=== PATIENT | female | born 2000 | race Caucasian/White ===

== ENCOUNTER 2021-09-25 06:07 | Day surgery (SDC) | payer BC, SELFPAY ==
[2021-09-25] VITALS (13 sets, daily range): BP systolic 106–127; BP diastolic 59–73; PULSE 64–85; RESP 14–20; TEMP 36.5–36.7; O2SAT 93–98; BMI 36.6
[2021-09-25] MEDS: LACTATED RINGERS 1000 ML 1,000 ML 35 ML IV (06:30)
[2021-09-25] MEDS: CEFAZOLIN 2 GM INJ IVP (07:44)
[2021-09-25 07:45] LABS: Ur HCG Qualitative* Negative (Negative)
[2021-09-25] MEDS: BUPIVACAINE 0.25% 30 ML 15 ML INJECTION (08:37)
--- NOTE | 2021-09-25 08:56 | P.GSOP_ITS ---
Operative Note Date of procedure: 09/25/21 Type of Procedure: 1. Laparoscopic cholecystectomy. Procedure Description: After discussing the risks and benefits of the procedure, the patient signed informed consent.? The operative site was marked and the patient was brought to the operating room and placed on the operating table in supine position.? Care was taken to pad the patient's pressure points.?? The patient was then intubated by anesthesia.?? The operative site was then prepped and draped in the usual sterile fashion.? A time-out was then performed. A 5-mm laparoscopy port was placed in the left upper quadrant guided by a 5-mm laparoscope placed into a translucent trochar.~ Passage through the layers of the abdominal wall was visualized with the laparoscope.~ A pneumoperitoneum was established. A 0-degree 5-mm laparoscope was advanced into the abdomen. The abdomen was briefly surveyed. Omental adhesions were noted just inferior to the umbilicus. Those were not taken down. A 10-mm port were placed infraumbilically and two more 5 mm ports were placed on the right under direct visualization by laparoscope. The camera was then changed to 10 mm 30-degree scope and placed into the abdomen through the 10 mm port. The left upper quadr ant port entrance was examined and no injury to intra-abdominal organs was identified. The gallbladder was identified. Omentum was adherent to the anterior surface of the gallbladde suggestive of chronic inflammation. Those adhesions were taken down with hook cautery. The gallbladder appeared to be contracted. The gallbladder fundus grasped and retracted cephalad. The infundibulum was grasped and retracted laterally, exposing the peritoneum overlying the triangle of Calot. This was then divided and exposed in a blunt fashion and with hook cautery. Common bile duct was not identified but care was taken not to injure it. The cystic duct was clearly identified and bluntly dissected circumferentially. Cystic artery was identified and tissues around it were dissected off. There is a prominent vein going into the gallbladder lateral to the gallbladder. This vein was clipped with a single clip on the patient's side and the gallbladder side and divided with scissors. The cystic artery and the cystic duct were clearly going into the gallbladder. The cystic duct was then doubly ligated with surgical clips on the patient's side and singly clipped on the gallbladder side and divided. The cystic artery was then similarly ligated with clips and divided as well. The gallbladder was dissected from the liver bed in retrograde fashion using hookcautery. The gallbladder was placed into an Endo-Catch bag and removed through the infraumbilical incision. Surgical site was examined for bleeding. No bleeding was seen in the surgical field. The fascia of the infraumbilical incision was then closed with 0-0 vicryl using Luis Daniel Raquel needle under direct visualization. Pneumoperitoneum was completely reduced after viewing removal of the trocars under direct vision. The skin was then closed with 4-0 monocryl and steristrips were applied. Instrument, sponge, and needle counts were correct at closure and at the conclusion of the case. The patient was transferred to PACU in stable condition. ? Findings: Omentum adherent to the anterior surface of the gallbladder suggestive of chronic inflammation. Anesthesia: GETA Surgeon: Gregory Jauregui MD Estimated blood loss (mL): 5 Condition: stable Disposition: PACU
--- NOTE | 2021-09-25 08:59 | W.ANESCHARGE ---
Anesthesia Charges Start Date/Time Anesthesia Start Date: 09/25/21 Anesthesia Start Time: 07:31 Stop Date/Time Anesthesia Stop Date: 09/25/21 Anesthesia Stop Time: 08:55 Summary Emergency: No
[2021-09-25] MEDS: fentaNYL 100 MCG/2 ML inj 50 MCG IVP ×2 (09:03→09:15)
--- NOTE | 2021-09-25 09:17 | W.ANESCHARGE ---
Anesthesia Charges Start Date/Time Anesthesia Start Date: 09/25/21 Anesthesia Start Time: 07:31 Stop Date/Time Anesthesia Stop Date: 09/25/21 Anesthesia Stop Time: 08:55 Summary Emergency: No
[2021-09-25] MEDS: ONDANSETRON 2 MG/ML inj 4 MG IVP (10:30)
--- NOTE | 2021-09-25 10:46 | SUR.PHASEII ---
Patient walked to bathroom with minimal assist. Had no problems urinating.
[2021-09-25] MEDS: HYDROCODONE-ACETAMIN 5-325 MG 1 TAB PO (11:21)
== END 2021-09-25 11:22 | disposition home or self-care (01) ==
PROVIDERS: Anesthesiology; Visit Provider Surgery
PROC: 0FT44ZZ Resection of Gallbladder, Percutaneous Endoscopic Approach (ICD-10-PCS; CPT 47562; principal; 2021-09-25 07:30)
DX: K80.10 Calculus of gallbladder with chronic cholecystitis without obstruction (principal)
CPT/HCPCS: 47562; 00790; 00860; 81025; 88304; A9270; J0131; J0690; J1100; J1170; J2250; J2405; J2704; J2710; J3010; J3475; J3490; J7120